=== PATIENT | male | born 1970 | race Caucasian/White ===

== ENCOUNTER → 2017-12-29 | Outpatient (CLI) | payer OTHER | LOC: COL.RAD 13:04 | DX: S83.232A Complex tear of medial meniscus, current injury, left knee, initial encounter (principal); M24.10 Other articular cartilage disorders, unspecified site ==

== ENCOUNTER → 2021-11-08 | Outpatient (CLI) | payer OTHER | LOC: COL.RAD 08:48 | DX: R10.32 Left lower quadrant pain (principal); J90 Pleural effusion, not elsewhere classified; R11.2 Nausea with vomiting, unspecified; R50.9 Fever, unspecified; R00.2 Palpitations | CPT/HCPCS: Q9967 ==

== ENCOUNTER → 2022-07-09 | Outpatient (CLI) | payer BC | LOC: COL.RAD 07:44 | DX: S83.241A Other tear of medial meniscus, current injury, right knee, initial encounter (principal); X58.XXXA Exposure to other specified factors, initial encounter ==